=== PATIENT | male | born 1975 | race Caucasian/White ===

== ENCOUNTER 2017-09-04 17:20 | Inpatient (IN) | payer MEDICARE ==
[~2017-09-04] VITALS: Ht 175.3 cm; Wt 64.1 kg
[2017-09-04 18:11] LABS: AMPHET/METH SCREEN,URINE NEGATIVE (NEGATIVE); BARBITURATE SCREEN, URINE NEGATIVE (NEGATIVE); BENZODIAZEPINES SCREEN,URINE NEGATIVE (NEGATIVE); CANNABINOID SCREEN,URINE POSITIVE (NEGATIVE); COCAINE SCREEN,URINE NEGATIVE (NEGATIVE); METHADONE SCREEN, URINE NEGATIVE (NEGATIVE); OPIATE SCREEN,URINE NEGATIVE (NEGATIVE)
[2017-09-04] MEDS ORDERED: QUET200T PO (18:23)
[2017-09-04] MEDS ORDERED: CHOL50004 PO (18:23)
[2017-09-04] MEDS ORDERED: CALC-1038 PO (18:23)
[2017-09-04 18:38] LABS: BASOPHILS % (AUTO) 0.8 % (0.0-2.0); EOSINOPHILS % (AUTO) 1.7 % (1.0-6.0); HEMATOCRIT 40.2 % (41-53); HEMOGLOBIN 13.9 g/dL (13.5-17.5); LYMPHOCYTES # (AUTO) 3.6 K/uL (1.0-4.8); LYMPHOCYTES % (AUTO) 41.1 % (22.0-44.0); MEAN CORPUSCULAR HEMOGLOBIN 31.6 pg (26.0-34.0); MEAN CORPUSCULAR HGB CONC 34.6 G/dL (31.0-37.0); MEAN CORPUSCULAR VOLUME 91 fL (80-100); MONOCYTES # (AUTO) 0.7 K/uL (0.1-1.0); MONOCYTES % (AUTO) 8.5 % (2.0-9.0); NEUTROPHILS # (AUTO) 4.2 K/uL (1.8-7.7); NEUTROPHILS % (AUTO) 47.9 % (40.0-70.0); PLATELET COUNT (AUTO) 353 K/uL (150-450); RED BLOOD CELL COUNT(AUTO) 4.39 MIL/uL (4.50-5.90); RED CELL DISTRIBUTION WIDTH 14.9 % (11.5-14.5)
[2017-09-04 18:42] LABS: PHENCYCLIDINE SCREEN,URINE NEGATIVE (NEGATIVE)
[2017-09-04 19:04] LABS: ANION GAP 8 mmol/L (8-16); CALCIUM, TOTAL 7.1 mg/dL (8.8-10.5); CARBON DIOXIDE 31 mmol/L (22-29); CHLORIDE 100 mmol/L (98-107); CREATININE 1.21 mg/dL (0.60-1.30); GLOMERULAR FILTR. RATE CALC > 60 mL/min (>60); GLUCOSE,RANDOM 89 mg/dL (70-110); SODIUM SERUM 139 mmol/L (136-145); UREA NITROGEN, BLOOD 17 mg/dL (7-18)
[2017-09-04 19:10] LABS: ALANINE AMINOTRANSFERASE 26 U/L (12-78); ALBUMIN 3.7 g/dL (3.4-5.0); ALKALINE PHOSPHATASE 57 U/L (46-116); ASPARTATE AMINOTRANSFERASE 19 U/L (15-37); BILIRUBIN,TOTAL 0.2 mg/dL (0.1-1.0); TOTAL PROTEIN, SERUM 7.1 g/dL (6.4-8.2)
[2017-09-04] MEDS ORDERED: ZOLPIDEM TARTRATE 10 MG TABLET PO PRN (20:30)
[2017-09-04] MEDS ORDERED: HALOPERIDOL 5 MG TABLET PO PRN (20:30)
[2017-09-05 00:31] VITALS: BP 136/74
[2017-09-05] MEDS: LORazepam 2 MG TABLET PO PRN ×3 (00:42→09:36)
[2017-09-05 05:00] VITALS: BP 121/77
[2017-09-05 08:12] VITALS: BP 126/90
[2017-09-05] MEDS: QUEtiapine FUMARATE 200 MG TABLET PO SCH ×2 (09:04→16:56)
[2017-09-05] MEDS ORDERED: FluPHENAZine HCL 2.5 MG/ML INJ IM ONE (12:30)
[2017-09-05] MEDS ORDERED: LORazepam 2 MG/ML VIAL IM ONE (12:30)
[2017-09-05 13:18] VITALS: BP 112/66
[2017-09-05 17:05] VITALS: BP 105/65
[2017-09-05] MEDS ORDERED: MAG HYDROX/AL HYDROX/SIMETH ES 30 ML SUSPENSION UDCUP PO PRN (22:30)
[2017-09-05] MEDS ORDERED: MAGNESIUM HYDROXIDE SUSPENSION 30 ML UDCUP PO PRN (22:30)
[2017-09-05] MEDS ORDERED: CloNIDine HCL 0.1 MG TABLET PO PRN (22:30)
[2017-09-05] MEDS ORDERED: BACITRACIN 28.4 GM OINTMENT TP PRN (22:30)
[2017-09-05] MEDS ORDERED: PETROLATUM,WHITE 71 GM JELLY TP PRN (22:30)
[2017-09-05] MEDS ORDERED: LOPERAMIDE HCL 2 MG CAPSULE PO PRN (22:30)
[2017-09-05] MEDS ORDERED: BENZOCAINE/MENTHOL LOZENGE MM PRN (22:30)
[2017-09-05] MEDS ORDERED: ONDANSETRON HCL 4 MG TABLET PO PRN (22:30)
[2017-09-05] MEDS ORDERED: ALBUTEROL SULFATE HFA 90 MCG/PUFF 8 GM INHALER IH PRN (22:30)
[2017-09-06 02:55] VITALS: BP 113/86
[2017-09-06] MEDS: LORazepam 2 MG TABLET PO PRN ×2 (02:56→17:16)
[2017-09-06] MEDS: IBUPROFEN 600 MG TABLET PO PRN ×2 (02:58→10:01)
[2017-09-06] MEDS: ACETAMINOPHEN 325 MG TABLET PO PRN (07:26)
[2017-09-06 08:31] VITALS: BP 123/76
[2017-09-06 08:54] LABS: CHOL/HDL RATIO 3.1 (4.2-7.3); THYROID STIMULATING HORMONE 1.36 uIU/mL (0.36-3.74)
[2017-09-06] MEDS: QUEtiapine FUMARATE 200 MG TABLET PO SCH ×2 (08:58→17:11)
[2017-09-06] MEDS: DOCUSATE SODIUM 100 MG CAPSULE PO SCH (08:58)
[2017-09-06] MEDS: OMEPRAZOLE 20 MG CAPSULE PO SCH (08:58)
[2017-09-06] MEDS: NICOTINE 21 MG/24 HOUR PATCH TD SCH (10:19)
[2017-09-06 16:13] VITALS: BP 121/78
[2017-09-06] MEDS ORDERED: HALOPERIDOL 5 MG TABLET PO PRN (18:30)
[2017-09-07 01:19] VITALS: BP 115/70
[2017-09-07 05:00] VITALS: BP 117/84
[2017-09-07] MEDS: LORazepam 2 MG TABLET PO PRN ×3 (05:33→16:22)
[2017-09-07] MEDS: IBUPROFEN 600 MG TABLET PO PRN ×2 (05:34→14:19)
[2017-09-07] MEDS: ACETAMINOPHEN 325 MG TABLET PO PRN (07:33)
[2017-09-07 08:16] VITALS: BP 121/74
[2017-09-07] MEDS: NICOTINE 21 MG/24 HOUR PATCH TD SCH (08:38)
[2017-09-07] MEDS: OMEPRAZOLE 20 MG CAPSULE PO SCH (08:38)
[2017-09-07] MEDS: QUEtiapine FUMARATE 200 MG TABLET PO SCH ×2 (08:38→17:14)
[2017-09-07] MEDS: DOCUSATE SODIUM 100 MG CAPSULE PO SCH (08:38)
[2017-09-07 14:19] VITALS: BP 116/72
[2017-09-07 16:15] VITALS: BP 115/71
[2017-09-08 00:12] VITALS: BP 120/84
[2017-09-08] MEDS: LORazepam 2 MG TABLET PO PRN ×2 (01:48→08:05)
[2017-09-08] MEDS: NICOTINE 21 MG/24 HOUR PATCH TD SCH (08:04)
[2017-09-08] MEDS: DOCUSATE SODIUM 100 MG CAPSULE PO SCH (08:04)
[2017-09-08] MEDS: OMEPRAZOLE 20 MG CAPSULE PO SCH (08:04)
[2017-09-08] MEDS: QUEtiapine FUMARATE 200 MG TABLET PO SCH (08:04)
[2017-09-08 08:05] VITALS: BP 110/64
[2017-09-08] MEDS: IBUPROFEN 600 MG TABLET PO PRN (08:05)
== END 2017-09-08 13:00 | disposition home or self-care (01) | DRG 885 ==
LOC: EMS 17:21 → B2X 21:03
PROVIDERS: ADMIT Psychiatry & Neurology Psychiatry; ATTEND Psychiatry & Neurology Psychiatry
DX: F25.9 Schizoaffective disorder, unspecified (principal); R45.851 Suicidal ideations; F12.90 Cannabis use, unspecified, uncomplicated; E03.9 Hypothyroidism, unspecified; F17.210 Nicotine dependence, cigarettes, uncomplicated; E83.51 Hypocalcemia; K59.00 Constipation, unspecified; Z88.8 Allergy status to other drugs, medicaments and biological substances; Z59.0 Homelessness
CPT/HCPCS: 82306; 84443; 99285; 99406; G0480; J2060; J3490